=== PATIENT | male | born 1980 | race Caucasian/White ===

== ENCOUNTER 2023-02-06 12:48 | Outpatient (CLI) | payer OTHER | END 2023-02-06 12:49 | disposition home or self-care (01) | LOC: MRI 12:48 | PROVIDERS: ATTEND Specialist | DX: M47.22 Other spondylosis with radiculopathy, cervical region (principal); M50.11 Cervical disc disorder with radiculopathy, high cervical region | CPT/HCPCS: 72141; 72156 ==